=== PATIENT | female | born 1995 | race Caucasian/White ===

== ENCOUNTER 2021-12-10 13:34 | Outpatient (CLI) | payer BC, SELFPAY ==
[2021-12-10 12:37] LABS: HCG Quant, Pregnancy 3404 mIU/mL (1-3)
== END 2021-12-10 13:35 | disposition home or self-care (01) ==
LOC: LBO 13:36
PROVIDERS: Visit Provider Obstetrics & Gynecology
DX: O20.0 Threatened abortion (principal); Z3A.01 Less than 8 weeks gestation of pregnancy
CPT/HCPCS: 86850; 86900; 86901; 84702

== ENCOUNTER 2021-12-12 01:52 | Outpatient (CLI) | payer BC, SELFPAY ==
[2021-12-12 16:56] LABS: HCG Quant, Pregnancy 637 mIU/mL (1-3)
== END 2021-12-12 01:53 | disposition home or self-care (01) ==
LOC: LBO 01:52
PROVIDERS: Visit Provider Obstetrics & Gynecology
DX: O20.0 Threatened abortion (principal)
CPT/HCPCS: 84702

== ENCOUNTER 2021-12-20 04:14 | Outpatient (CLI) | payer BC, SELFPAY ==
[2021-12-20 13:33] LABS: HCG Quant, Pregnancy 29 mIU/mL (1-3)
== END 2021-12-20 04:15 | disposition home or self-care (01) ==
LOC: LBO 04:14
PROVIDERS: Visit Provider Obstetrics & Gynecology
DX: O03.9 Complete or unspecified spontaneous abortion without complication (principal)
CPT/HCPCS: 36415; 84702

== ENCOUNTER 2022-06-03 03:17 | Outpatient (CLI) | payer BC, SELFPAY ==
[2022-06-03 11:59] LABS: Abs Immature Grans 0.05 10^3/uL (0.0-0.06); Absolute Basophil Count 0.04 10^3/uL (0.0-0.2); Absolute Eosinophil Count 0.19 10^3/uL (0.0-0.7); Absolute Lymphocyte Count 1.33 10^3/uL (1.2-3.4); Absolute Monocyte Count 0.38 10^3/uL (0.1-0.8); Absolute Neutrophil Count 7.56 10^3/uL (1.2-6.7); Basophils % 0.4; HCT 42.3 % (36.0-46.0); Immature Grans % 0.5; Lymphocytes % 13.9; MCHC 33.1 % (32.0-36.0); MCV 85 fL (80-95); MPV 10.7 fL (8.0-11.0); Neutrophils % 79.2; Platelet Count 189 10^3/uL (130-400); RDW 13.5 % (11.7-14.6); RDW-SD 41.3 fL; WBC 9.55 10^3/uL (4.4-10.8)
[2022-06-03 12:38] LABS: TSH (W/Ref FT4) 0.34 uIU/mL (0.36-3.74)
[2022-06-03 13:01] LABS: FREE T4 1.08 ng/dL (0.76-1.46)
[2022-06-04 09:49] LABS: Hepatitis B Surface Ag Negative (Negative)
[2022-06-04 09:55] LABS: Hepatitis C Ab w Rflx HCV PCR Negative (Negative)
[2022-06-04 10:30] LABS: Rubella IgG Ab (UVM) Positive (See Note); Varicella IgG Antibody Negative (See Note)
[2022-06-04 10:50] LABS: HIV-1/2 Ag & Ab Screen Negative (Negative)
[2022-06-05 12:52] LABS: Syphilis IgG w/Reflex Nonreactive (Nonreactive)
== END 2022-06-03 03:18 | disposition home or self-care (01) ==
LOC: LBO 03:19
PROVIDERS: Visit Provider Advanced Practice Midwife
DX: Z34.91 Encounter for supervision of normal pregnancy, unspecified, first trimester
CPT/HCPCS: 36415; 86787; 86803; 86850; 86900; 86901; 87340; 87389; 84439; 84443; 85025; 86762; 86780

== ENCOUNTER 2022-06-03 14:48 | Outpatient (REF) | payer BC, SELFPAY ==
[2022-06-03 13:19] LABS: *AMPHETAMINES SCREEN URINE Negative (Negative); *BARBITURATES SCREEN URINE Negative (Negative); *BENZODIAZEPINES SCREEN URINE Negative (Negative); Cannabinoids THC Negative (Negative); Cocaine Screen,Urine Negative (Negative); METHADONE URINE SCREEN Negative (Negative); OPIATES URINE SCREEN Negative (Negative); Tricyclic Antidepressants Negative (Negative)
[2022-06-05 14:21] LABS: Chlamydia Result Negative (Negative); GC Result Negative (Negative)
[2022-06-08 14:05] LABS: Buprenorphine Negative ng/mL (Cutoff: 5.0); Norbuprenorphine Negative ng/mL (Cutoff: 2.5)
== END 2022-06-03 14:49 | disposition home or self-care (01) ==
LOC: LBN 14:48
PROVIDERS: Visit Provider Advanced Practice Midwife
DX: Z34.91 Encounter for supervision of normal pregnancy, unspecified, first trimester (principal); Z11.3 Encounter for screening for infections with a predominantly sexual mode of transmission; Z3A.11 11 weeks gestation of pregnancy
CPT/HCPCS: 80307; 80348; 87491; 87591

== ENCOUNTER 2022-07-01 17:16 | Outpatient (REF) | payer BC, SELFPAY | END 2022-07-01 17:17 | disposition home or self-care (01) | LOC: LBN 17:16 | PROVIDERS: Visit Provider Advanced Practice Midwife | DX: Z34.92 Encounter for supervision of normal pregnancy, unspecified, second trimester (principal); Z3A.15 15 weeks gestation of pregnancy | CPT/HCPCS: 87086 ==

== ENCOUNTER 2022-09-20 10:49 | Outpatient (REF) | payer BC, SELFPAY ==
[2022-09-20 12:42] VITALS: BP 124/81; PULSE 114
[2022-09-20 13:05] VITALS: BP 124/81; PULSE 114; TEMP 36.5
[2022-09-20 13:16] VITALS: BP 124/81; PULSE 114; TEMP 36.5
--- NOTE | 2022-09-20 13:20 | W.OBNST ---
Date of service: 09/20/22 Time of Service: 13:05 NST Evaluation Reason for NST Reasons for Nonstress Test: OTHER, SEE COMMENT Reason for NST Other: Maternal dizziness and tachycardia Gestational Age Gestational Age in Weeks and Days: 27 Weeks and 3Days Test and Monitor Explained Test/Monitor Explained: Test Explained, Monitor Explained and Patient Verbalized Understanding Vital Signs Blood Pressure: 124/81 Pulse: 114 Temperature: 97.7 F Urine Results Urine Protein: Negative Urine Ketones: Negative Urine Glucose: Negative Urine Blood: Negative NST Information Time on Monitor: 12:32 Date off Monitor: 09/20/22 Time off Monitor: 13:14 NST Interventions: PO Hydration Contraction Frequency: 0 NST Evaluation Patient States Movement: Present FHR Baseline: 150 Variability: Moderate 6-25 bpm Accelerations: 10x10 Decelerations: None NST Results: Reactive Note N/A NST Note Note: Asuncion presents for NST due to concerns related to feeling dizzy and having spots in vision. She reports she had this with her oldest son's as well. She has not fainted but feels near that from time to time. She is trying to eat small frequent meals. States that it happens at home as often as at work. Rest helps. She denies chest pain or SOB when this happens. Asuncion admits that she does not drink water like she should and will try to do better. She is doing her 1 hour GTT and CBC today while on BC as she is worried she might be diabetic. We discussed doing a cardiology consult but she declines stating I think I will be fine She will go home after lab draw and I will call her with her results when available. NST is reassuring for 27 week gestation. ANETTE NST Reviewed and Verified by: Eden Baer
[2022-09-20 13:23] VITALS: BP 124/81; PULSE 114; TEMP 36.5
[2022-09-20 13:33] VITALS: BP 117/71; PULSE 106
[2022-09-20 13:36] LABS: HCT 35.3 % (36.0-46.0); HGB 11.5 g/dL (11.2-15.7); MCH 28.8 pg (27.0-33.0); MCHC 32.6 % (32.0-36.0); MCV 88 fL (80-95); MPV 10.6 fL (8.0-11.0); Platelet Count 137 10^3/uL (130-400); RDW 13.8 % (11.7-14.6); RDW-SD 44.5 fL; WBC 12.52 10^3/uL (4.4-10.8)
[2022-09-20 13:45] LABS: Glucose,1 Hr (Glucola) 108 mg/dL (80-140)
== END 2022-09-20 13:50 | disposition home or self-care (01) ==
LOC: NCHCN 10:49
PROVIDERS: Advanced Practice Midwife; PCP Advanced Practice Midwife; Visit Provider Advanced Practice Midwife
DX: O36.8320 Maternal care for abnormalities of the fetal heart rate or rhythm, second trimester, not applicable or unspecified (principal); O26.892 Other specified pregnancy related conditions, second trimester; R42 Dizziness and giddiness; Z3A.27 27 weeks gestation of pregnancy
CPT/HCPCS: 82950; 85027; 59025

== ENCOUNTER 2022-11-01 01:03 | Outpatient (CLI) | payer BC, SELFPAY ==
--- NOTE | 2022-11-01 07:30 | DI.US_ITS ---
Exam(s) US OB FLIP WEIGHT EXAM: US OB FLIP WEIGHT CLINICAL HISTORY: growth,h/o covid,asthma,O98.519. TECHNIQUE: Transabdominal obstetrical ultrasound performed. COMPARISON: US US OB 2-3 TRIMESTER from 08/14/2022 FINDINGS: Number of fetuses: 1 position: Breech. Placental location: There is a grade 2 anterior placenta. No evidence of previa. BIOMETRIC DATA: BPD: 8.35cm, 33weeks 4days HC: 30.48cm, 33weeks 6days AC: 29.62cm, 33weeks 4days FL: 6.31cm, 32weeks 4days EFW: 2,177.34g, 4lb 13.72oz, 39.4% Composite Age: 33weeks 3days ZO: 12/17/2022 Heart Rate: 134bpm Amniotic fluid index: 20.74cm. Visually, amount of fluid is within normal limits. IMPRESSION: 1. Single live intrauterine gestation as above. 2. Estimated weight is 2177gms. This is the 39th percentile. There has been normal interval growth. 3. Amniotic fluid index is 20.7 cm. Visually, within normal limits. DATA REPOSITORY:
== END 2022-11-01 01:23 ==
LOC: DI 01:03
PROVIDERS: PCP Advanced Practice Midwife; Visit Provider Advanced Practice Midwife
DX: J45.909 Unspecified asthma, uncomplicated (principal); O98.519 Other viral diseases complicating pregnancy, unspecified trimester; U07.1 COVID-19; Z34.03 Encounter for supervision of normal first pregnancy, third trimester
CPT/HCPCS: 76816

== ENCOUNTER 2022-11-14 04:42 | Outpatient (CLI) | payer BC, SELFPAY ==
[2022-11-14 09:56] LABS: HCT 36.2 % (36.0-46.0); HGB 11.7 g/dL (11.2-15.7); MCH 27.9 pg (27.0-33.0); MCHC 32.3 % (32.0-36.0); MCV 86 fL (80-95); Platelet Count 149 10^3/uL (130-400); RBC 4.19 10^6/uL (3.93-5.22); RDW 14.3 % (11.7-14.6); RDW-SD 44.6 fL; WBC 10.22 10^3/uL (4.4-10.8)
[2022-11-14 10:22] LABS: TSH (W/Ref FT4) 1.26 uIU/mL (0.36-3.74)
== END 2022-11-14 04:43 | disposition home or self-care (01) ==
LOC: LBO 04:42
PROVIDERS: PCP Advanced Practice Midwife; Visit Provider Advanced Practice Midwife
DX: R00.0 Tachycardia, unspecified (principal); Z34.93 Encounter for supervision of normal pregnancy, unspecified, third trimester; R79.89 Other specified abnormal findings of blood chemistry
CPT/HCPCS: 36415; 85027; 84443

== ENCOUNTER 2022-11-22 09:08 | Outpatient (REF) | payer BC, SELFPAY ==
[2022-11-22 10:51] LABS: *AMPHETAMINES SCREEN URINE Negative (Negative); *BARBITURATES SCREEN URINE Negative (Negative); *BENZODIAZEPINES SCREEN URINE Negative (Negative); Cannabinoids THC Negative (Negative); Cocaine Screen,Urine Negative (Negative); METHADONE URINE SCREEN Negative (Negative); OPIATES URINE SCREEN Negative (Negative); Tricyclic Antidepressants Negative (Negative)
[2022-11-28 22:27] LABS: Buprenorphine Negative ng/mL (Cutoff: 5.0); Norbuprenorphine Negative ng/mL (Cutoff: 2.5)
== END 2022-11-22 09:09 | disposition home or self-care (01) ==
LOC: LBN 09:08
PROVIDERS: PCP Advanced Practice Midwife; Visit Provider Advanced Practice Midwife
DX: Z34.93 Encounter for supervision of normal pregnancy, unspecified, third trimester (principal); Z36.85 Encounter for antenatal screening for Streptococcus B; Z3A.36 36 weeks gestation of pregnancy
CPT/HCPCS: 80307; 80348; 87081

== ENCOUNTER 2022-12-06 01:39 | Outpatient (CLI) | payer BC, SELFPAY | END 2022-12-06 01:40 | disposition home or self-care (01) | LOC: LBO 01:39 | PROVIDERS: PCP Advanced Practice Midwife; Visit Provider Advanced Practice Midwife | DX: Z77.011 Contact with and (suspected) exposure to lead (principal) | CPT/HCPCS: 36415; 83655 ==

== ENCOUNTER 2022-12-22 10:47 | Outpatient (CLI) | payer BC, SELFPAY ==
[2022-12-22 13:20] VITALS: BP 113/87; PULSE 96; TEMP 36.6
[2022-12-22 13:51] LABS: HCT 36.6 % (36.0-46.0); HGB 11.7 g/dL (11.2-15.7); MCH 27.5 pg (27.0-33.0); MCV 86 fL (80-95); MPV 11.5 fL (8.0-11.0); Platelet Count 142 10^3/uL (130-400); RBC 4.25 10^6/uL (3.93-5.22); RDW 14.7 % (11.7-14.6); RDW-SD 46.2 fL; WBC 11.23 10^3/uL (4.4-10.8)
[2022-12-22 13:57] LABS: ALT 9 U/L (14-59); AST 19 U/L (15-37); Albumin 2.5 g/dL (3.4-5.0); Alkaline Phosphatase 138 U/L (46-116); Amylase 61 U/L (25-115); Anion Gap 9.9 mmol/L (3-11); BUN 4 mg/dL (7-18); Bilirubin, Total 0.3 mg/dL (0.2-1.0); CO2 24.1 mmol/L (21.0-32.0); CREATININE 0.7 mg/dL (0.55-1.02); Calcium 8.6 mg/dL (8.5-10.1); Chloride 106 mmol/L (98-107); Estimated GFR 121.49 (mL/min/1.73m2); Glucose 101 mg/dL (74-106); Lipase 42 U/L (16-77); Potassium 4.3 mmol/L (3.5-5.1); Sodium 140 mmol/L (136-145); Total Protein 6.4 g/dL (6.4-8.2)
--- NOTE | 2022-12-22 14:36 | W.OBNST ---
Date of service: 12/22/22 Time of Service: 14:30 NST Evaluation Reason for NST Reasons for Nonstress Test: OTHER, SEE COMMENT Reason for NST Other: R/O cholestasis Gestational Age Gestational Age in Weeks and Days: 40 Weeks and 5Days Test and Monitor Explained Test/Monitor Explained: Test Explained, Monitor Explained and Other Vital Signs Blood Pressure: 113/87 Pulse: 96 Temperature: 97.9 F NST Information Time on Monitor: 13:24 NST Interventions: PO Hydration Contraction Frequency: none NST Evaluation Patient States Movement: Present FHR Baseline: 170 Variability: Moderate 6-25 bpm Accelerations: 15x15 Decelerations: None NST Results: Reactive Note Ultrasound Done: N/A. NST Note Note: NST and labs done for complaint of itching palms and soles of feet. VS stable, liver enzymes normal. Reviewed with Dr. Arndt who agrees that if labs are normal and NST is reactive she should continue with expectant management. Asuncion has appointment for NST and FLIP at 41w1d and will call with any signs of labor. Discharged to home in satisfactory condition. Initially FHR was 170 with very frequent movement, at end of tracing when movement decreased slightly baseline was 150s with good variability and accels to 160-170.ANETTE NST Reviewed and Verified by: Eden Baer
[2022-12-22 14:39] VITALS: BP 113/87; PULSE 96; TEMP 36.6
[2022-12-26 13:00] LABS: Bile Acids, Total 6 mcmol/L (<=10)
== END 2022-12-22 14:38 | disposition home or self-care (01) ==
LOC: BCD 10:48 → OBS 13:20
PROVIDERS: PCP Advanced Practice Midwife; Visit Provider Advanced Practice Midwife
DX: O48.0 Post-term pregnancy (principal); O26.893 Other specified pregnancy related conditions, third trimester; L29.9 Pruritus, unspecified; Z3A.40 40 weeks gestation of pregnancy
CPT/HCPCS: 36415; 80053; 83690; 85027; 59025; 82150; 82239

== ENCOUNTER 2022-12-25 08:13 | Outpatient (CLI) | payer BC, SELFPAY ==
[2022-12-25 10:14] VITALS: BP 123/88; PULSE 84; TEMP 36.7
--- NOTE | 2022-12-25 11:08 | W.OBNST ---
Date of service: 12/25/22 Time of Service: 11:00 NST Evaluation Reason for NST Reasons for Nonstress Test: POSTDATES Gestational Age Gestational Age in Weeks and Days: 41 Weeks and 1Days Test and Monitor Explained Test/Monitor Explained: Test Explained, Monitor Explained and Patient Verbalized Understanding Vital Signs Temperature: 98.1 F NST Information Date on Monitor: 12/25/22 Time on Monitor: 10:05 Date off Monitor: 12/25/22 Time off Monitor: 11:00 Total Time on Monitor: 55 Contraction Frequency: 0 NST Evaluation Patient States Movement: Present FHR Baseline: 140 Variability: Moderate 6-25 bpm Accelerations: 15x15 Decelerations: None NST Results: Reactive Note Ultrasound Done: FLIP (Melva Dodson CNM: postdates) Total FLIP: 7.6 Other Pertinent Findings: Heart Rate (140), Presentation (ROP) and Placental Location (anterior) Coding for FLIP w/NST: Completed Exam. NST Note NST Reviewed and Verified by: Kimmie Dodson
[2022-12-25 11:11] VITALS: TEMP 36.7
--- NOTE | 2022-12-25 12:28 | W.OBNST ---
Date of service: 12/25/22 Time of Service: 12:28 NST Evaluation Reason for NST Reasons for Nonstress Test: POSTDATES Gestational Age Gestational Age in Weeks and Days: 41 Weeks and 1Days Test and Monitor Explained Test/Monitor Explained: Test Explained, Monitor Explained and Patient Verbalized Understanding Vital Signs Blood Pressure: 123/88 Pulse: 84 Temperature: 98.1 F NST Information Date on Monitor: 12/25/22 Time on Monitor: 10:05 Date off Monitor: 12/25/22 Time off Monitor: 10:53 Total Time on Monitor: 48 NST Interventions: None NST Evaluation Patient States Movement: Present FHR Baseline: 135 Variability: Moderate 6-25 bpm Accelerations: 15x15 Decelerations: None NST Results: Reactive Note Ultrasound Done: N/A. NST Note Note: FLIP performed by Argelia Dodson CNM. FLIP 7. SVE performed and cervix 3 cms/50%/-1. Occasional mild contractions. Signs of labor reviewed. NST Reviewed and Verified by: Eden Faulkner
[2022-12-25 12:30] VITALS: BP 123/88; PULSE 84; TEMP 36.7
== END 2022-12-25 11:18 | disposition home or self-care (01) ==
LOC: BCD 08:13 → OBS 10:13
PROVIDERS: PCP Advanced Practice Midwife; Visit Provider Advanced Practice Midwife
DX: O48.0 Post-term pregnancy (principal); Z3A.41 41 weeks gestation of pregnancy
CPT/HCPCS: 59025

== ENCOUNTER 2022-12-25 17:39 | Inpatient (IN) | payer BC, SELFPAY ==
[2022-12-25] VITALS (15 sets, daily range): BP systolic 111–140; BP diastolic 58–86; PULSE 78–111; RESP 16; TEMP 36.5–36.8
[2022-12-25 18:08] LABS: HGB 11.8 g/dL (11.2-15.7); MCH 27.7 pg (27.0-33.0); MCHC 32.8 % (32.0-36.0); MCV 85 fL (80-95); MPV 11.3 fL (8.0-11.0); Platelet Count 146 10^3/uL (130-400); RBC 4.26 10^6/uL (3.93-5.22); RDW 14.8 % (11.7-14.6); RDW-SD 44.9 fL; WBC 15.11 10^3/uL (4.4-10.8)
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
[2022-12-25] MEDS: Nalbuphine 10 MG/ML AMP 5 MG IM (19:36)
[2022-12-25] MEDS: Oxytocin 10 UNITS/ML VIAL IM (20:16)
[2022-12-25] MEDS: Methylergonovine 0.2 MG TAB PO (21:00)
--- NOTE | 2022-12-25 21:01 | OBVDS_ITS ---
Date of service: 12/25/22 Time of Service: 21:01 OB Labor/ Delivery Information Baby A Delivery Delivery Method: Spontaneaous Presentation: Vertex Vertex Position: Left Occipital Anterior Amniotic Fluid: Meconium Estimated Blood Loss: 800 Delivery Outcome: Liveborn Infant Complications: loose nuchal cord x 1 Infant Transferred: Remains with Mother Note: FHTs 130s during first stage of labor. SROM occurred for mod meconium stained fluid. Asuncion used nitrous oxide for pain relief with fair effect. She was moved to the tub room. She requested pain medication as she was having a difficult time coping with contractions. Nubain 5 mg IM was administered. She requested to move to the tub and she began bearing down shortly after getting in the tub. FHTs 130s in second stage. Second stage huddle was done. There was a spontaneous delivery of female infant delivered in TISHA position. Baby was placed on mother's abdomen and dried and stimulated. Spontaneous cry. Heavy bleeding was noted and Asuncion requested to keep the cord intact so she was moved to the bed and bleeding was assessed. The Cord was clamped and cut by the baby's father . The placenta delivered spontaneously and appears to by intact with a three vessel cord. Pitocin 10 units was administered after delivery of the placenta. She continued to have bright bleeding after the placenta was delivered and the uterus was massaged and methergine IM 10 units was adminsietered IM and the uterus remained firm. The perineum was inspected and a small second degree laceration was repaired. The baby did breastfeed. After delivery, Mother and baby and father of the baby were stable and bonding well in the delivery room. Methergine was ordered PO 0.2 mg every 4 hours for 24 hours. Providers Nurse Air Conditioning Sheet Metal Installer: Eden Faulkner Nurse: Heather Dodson Nurse: Gracia Asencio Labor/Delivery Information Number of Babies in Womb: 1 Steroids Given: None Reason Steroids Not Administered: N/A Group Beta Strep: Negative Antibiotics Administered: No Rubella Status: Immune Blood Type: O+ Varicella Immunity: Nonimmune Medication in Delivery: yes, nubain, nitrous Maternal Complications: Precipitous Labor(<3hrs) Shoulder Dystocia: No Stages of Labor Onset of Labor Date: 12/25/22 Onset of Labor Time: 06:00 Complete Dilatation Date: 12/25/22 Complete Dilatation Time: 20:00 Labor - Stage 1 Duration: 14 hours and 0 minutes ROM Baby A: 12/25/22 ROM Baby A: 19:00 ROM Total Time- Baby A: [id number] Delivery Date-Baby A: 12/25/22 Infant Delivery Time-Baby A: 20:08 Labor Stage 2 Duration: 8 minutes Placenta Delivery Date-Baby A: 12/25/22 Placenta Delivery Time-Baby A: 20:19 Labor-Stage 3 Duration: 11 minutes Total Length of Labor-Baby A: 14 hours and 8 minutes Placenta Cultured: No Baby A Infant Gender: Female Gestational Status: Term (39-41.6 wks) Gestational Age in Weeks/Days: 41 Weeks and 1 Days Interventions Repair of Laceration Type: Perineal, Laceration Extension: Second Degree. Sponge Count Correct: No Sponges Placed in Vagina, Sharp Count Correct: Yes. Laceration Repair Note: perineum repaired under local anesthetic which Asuncion tolerated well.
[2022-12-25] MEDS: Ibuprofen 600 MG TAB PO (21:29)
[2022-12-25] MEDS: Acetaminophen 325 MG TAB 650 MG PO (21:30)
[2022-12-25] MEDS: Methylergonovine 0.2 MG/ML VIAL (21:33)
[2022-12-25] MEDS: Lidocaine 1% Multi-Dose 20 ML VIAL IJ (21:34)
[2022-12-25] MEDS: Hamamelis Leaf/Glycerin 100 EACH BOX PR (21:34)
[2022-12-25] MEDS: Dibucaine 1% 28 GM TUBE TP (21:35)
[2022-12-26] MEDS: Acetaminophen 325 MG TAB 650 MG PO ×4 (00:43→19:20)
[2022-12-26] MEDS: Methylergonovine 0.2 MG TAB PO ×3 (00:46→19:20)
[2022-12-26] MEDS: Ibuprofen 600 MG TAB PO ×3 (03:09→19:21)
[2022-12-26 07:08] LABS: HCT 30.9 % (36.0-46.0); MCH 27.6 pg (27.0-33.0); MCHC 32.4 % (32.0-36.0); MCV 85 fL (80-95); MPV 11.9 fL (8.0-11.0); Platelet Count 139 10^3/uL (130-400); RBC 3.62 10^6/uL (3.93-5.22); RDW 14.6 % (11.7-14.6); RDW-SD 45.1 fL; WBC 14.64 10^3/uL (4.4-10.8)
[2022-12-26 07:30] VITALS: BP 112/77; PULSE 90; RESP 12; TEMP 37.1
--- NOTE | 2022-12-26 09:06 | W.OBNST ---
Date of service: 12/25/22 Time of Service: 17:00 NST Evaluation Reason for NST Reasons for Nonstress Test: OTHER, SEE COMMENT Reason for NST Other: Rule out labor Gestational Age Gestational Age in Weeks and Days: 41 Weeks and 1Days Test and Monitor Explained Test/Monitor Explained: Test Explained and Monitor Explained Vital Signs Blood Pressure: 129/86 Pulse: 90 Temperature: 97.9 F NST Information Date on Monitor: 12/25/22 Time on Monitor: 17:12 Date off Monitor: 12/25/22 Time off Monitor: 18:03 Total Time on Monitor: 51 NST Interventions: PO Hydration NST Evaluation Patient States Movement: Present FHR Baseline: 155 Variability: Moderate 6-25 bpm Accelerations: 15x15 Decelerations: Late NST Results: Questionable Note Ultrasound Done: N/A. NST Note Note: Asuncion has been experiencing stronger contractions and presented for rule out labor. Cervix 5/80/-1. Admitted in activ elabor. NST Reviewed and Verified by: Eden Faulkner
[2022-12-26 09:08] VITALS: BP 129/86; PULSE 90; TEMP 36.6
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
[2022-12-26] MEDS: Varicella Virus Vaccine (Live) 0.5 ML SC (21:18)
== END 2022-12-26 22:20 | disposition home or self-care (01) | DRG 807 ==
LOC: OBS 18:09 → BCD 12-30 07:09
PROVIDERS: Admitting Provider Advanced Practice Midwife; PCP Advanced Practice Midwife; Visit Provider Advanced Practice Midwife
DX: O48.0 Post-term pregnancy (principal); Z37.0 Single live birth; Z3A.41 41 weeks gestation of pregnancy; O69.81X0 Labor and delivery complicated by cord around neck, without compression, not applicable or unspecified; O99.344 Other mental disorders complicating childbirth; F41.8 Other specified anxiety disorders; O99.52 Diseases of the respiratory system complicating childbirth; O77.0 Labor and delivery complicated by meconium in amniotic fluid; J45.909 Unspecified asthma, uncomplicated; M54.32 Sciatica, left side; N39.3 Stress incontinence (female) (male); O75.89 Other specified complications of labor and delivery; O99.892 Other specified diseases and conditions complicating childbirth; R00.0 Tachycardia, unspecified; O90.81 Anemia of the puerperium; D50.0 Iron deficiency anemia secondary to blood loss (chronic)
CPT/HCPCS: 36415; 85027; 86850; 86900; 86901; 59025; J2210; J2590; J3490

== ENCOUNTER 2023-02-05 14:33 | Outpatient (REF) | payer BC, SELFPAY ==
--- NOTE | 2023-02-05 13:30 | PAPFT_PTH ---
PATIENT: Asuncion Conner LOC: [facility] U#:[id number] AGE/SX: 27/F ROOM: RE02/05/[address]: Kimmie Dodson CNM : 1995 BED: DIS: 02/05/2023 SPEC #: [id number] RECD: 02/05/23 17:10 STATUS: CHIP REAri #: [id number] MERRY: 02/05/23 13:[address]: Kimmie Dodson DEPT: [facility] Cytology RECD BY: Michelle Mohan Tissues: 1 - CX/ENDOCX FOR PAP SMEARS Procedures: PAP THIN PREP/UVM Screening Comments: [id number]
== END 2023-02-05 14:34 | disposition home or self-care (01) ==
LOC: LBN 14:33
PROVIDERS: PCP Advanced Practice Midwife; Visit Provider Advanced Practice Midwife
DX: N89.8 Other specified noninflammatory disorders of vagina (principal); Z12.4 Encounter for screening for malignant neoplasm of cervix
CPT/HCPCS: 88142; 87480; 87510; 87660